=== PATIENT | female | born 1940 | race Caucasian/White ===

== ENCOUNTER 2024-08-19 15:37 | Inpatient (IN) | payer MEDICARE ==
[~2024-08-19] VITALS: Ht 160 cm; Wt 78.5 kg
[2024-08-19 17:31] VITALS: PULSE 64
[2024-08-19] MEDS ORDERED: PROC10TA PO (18:21)
[2024-08-19] MEDS ORDERED: ATOR10TA PO (18:21)
[2024-08-19] MEDS ORDERED: GLUC1VIA21 IM (18:21)
[2024-08-19] MEDS ORDERED: LEVO112T5 PO (18:21)
[2024-08-19] MEDS ORDERED: AMLO-169 PO (18:21)
[2024-08-19] MEDS ORDERED: SERT25TA PO (18:21)
[2024-08-19] MEDS ORDERED: HYDR10TA31 PO (18:21)
[2024-08-19] MEDS ORDERED: INSU100I13 SQ (18:21)
[2024-08-19] MEDS ORDERED: [UNRECOGNIZED DRUG - CODE] PO (18:21)
[2024-08-19] MEDS ORDERED: INSU100C SQ (18:21)
[2024-08-19] MEDS ORDERED: FENT1PAT9 TP (18:21)
[2024-08-19] MEDS ORDERED: ENOX40DI SQ (18:21)
[2024-08-19 18:22] VITALS: BP 191/75; PULSE 64; RESP 16; TEMP 97.1; O2SAT 98
[2024-08-19] MEDS ORDERED: APRESOLINE PO PRN (19:30)
[2024-08-19] MEDS ORDERED: APRESOLINE IV PRN (19:30)
[2024-08-19] MEDS ORDERED: ZOFRAN IV PRN (19:30)
[2024-08-19] MEDS ORDERED: DEXTROSE 50%-WATER SYRINGE IV PRN ×2 (19:30→20:00)
[2024-08-19 19:49] LABS: BASOPHIL # 0.0 10^3/uL (0.0-0.1); BASOPHIL % 0.3 % (0.1-1.2); EOSINOPHIL # 0.1 10^3/uL (0.0-0.2); EOSINOPHIL % 1.4 % (0.0-5.0); HEMATOCRIT(ML) 35.6 % (36.0-46.0); IG % 0.00 % (0.00-0.50); LYMPHOCYTES # 1.05 10^3/uL1 (1.0-4.8); LYMPHOCYTES % 29.2 % (24.0-44.0); MEAN CORP HGB 34.9 pg (26-34); MEAN CORP HGB CONCENTRATION 34.8 g/dL (33-36.5); MEAN CORP VOLUME 100.3 fL (78-100); MONOCYTES # 0.3 10^3/uL (0.3-0.8); MONOCYTES % 7.5 % (5.0-12.0); NEUTROPHIL # 2.2 10^3/uL (1.8-7.7); NEUTROPHILS % 61.6 % (41.0-85.0); RED BLOOD CELL 3.55 10^6/uL (4.00-5.20); RED CELL DISTRIBUTION WIDTH 11.9 % (11.5-14.5); WHITE BLOOD CELL 3.6 10^3/uL (4.5-11.0)
[2024-08-19] MEDS ORDERED: D5W 1000ML 1,000 ML IV PRN (20:00)
[2024-08-19 20:07] LABS: ALANINE AMINOTRANSFERASE(ML) 25.0 U/L (12-78); ALBUMIN(ML) 3.9 g/dL (3.4-5.0); CREATININE SERUM 0.99 mg/dL (0.59-1.40); EST GFR, NON-AA 53.6 (>/=60)
[2024-08-19] MEDS ORDERED: LIPITOR ONE (20:20)
[2024-08-19] MEDS: ZOSYN 3.375 GM 3.375 GM in NS 100ML 100 ML IV SCH (20:24)
[2024-08-19] MEDS: LOVENOX SQ SCH (20:24)
[2024-08-19] MEDS: LIPITOR PO SCH (20:24)
[2024-08-19 20:26] VITALS: BP 162/64; PULSE 60; RESP 16; TEMP 98.4; O2SAT 95
[2024-08-19] MEDS: HUMULIN R SQ SCH (20:26)
[2024-08-19] MEDS ORDERED: COMPAZINE PO PRN (22:30)
[2024-08-19] MEDS ORDERED: TYLENOL PO PRN (23:00)
[2024-08-19] MEDS ORDERED: GLUCAGEN SQ PRN (23:00)
[2024-08-20] MEDS: DURAGESIC TD SCH (01:08)
[2024-08-20] MEDS ORDERED: SYNTHROID ONE (04:48)
[2024-08-20] MEDS: SYNTHROID PO SCH (05:32)
[2024-08-20 05:33] LABS: BASOPHIL # 0.0 10^3/uL (0.0-0.1); BASOPHIL % 0.6 % (0.1-1.2); EOSINOPHIL # 0.1 10^3/uL (0.0-0.2); EOSINOPHIL % 1.6 % (0.0-5.0); HEMATOCRIT(ML) 32.7 % (36.0-46.0); IG % 0.30 % (0.00-0.50); LYMPHOCYTES # 1.07 10^3/uL1 (1.0-4.8); LYMPHOCYTES % 34.6 % (24.0-44.0); MEAN CORP HGB 35.2 pg (26-34); MEAN CORP HGB CONCENTRATION 35.8 g/dL (33-36.5); MEAN CORP VOLUME 98.5 fL (78-100); MONOCYTES # 0.3 10^3/uL (0.3-0.8); MONOCYTES % 8.1 % (5.0-12.0); NEUTROPHIL # 1.7 10^3/uL (1.8-7.7); NEUTROPHILS % 54.8 % (41.0-85.0); RED BLOOD CELL 3.32 10^6/uL (4.00-5.20); RED CELL DISTRIBUTION WIDTH 11.8 % (11.5-14.5); WHITE BLOOD CELL 3.1 10^3/uL (4.5-11.0)
[2024-08-20 05:49] LABS: ALANINE AMINOTRANSFERASE(ML) 20.0 U/L (12-78); ALBUMIN(ML) 3.5 g/dL (3.4-5.0); CREATININE SERUM 0.75 mg/dL (0.59-1.40); EST GFR, NON-AA 73.8 (>/=60)
[2024-08-20 07:09] VITALS: BP 166/74; PULSE 57; RESP 16; TEMP 98.2; O2SAT 97
[2024-08-20] MEDS ORDERED: NS 100ML 100 ML IV ONE ×3 (08:24→20:24)
[2024-08-20] MEDS: NORVASC PO SCH (08:26)
[2024-08-20] MEDS: ZOLOFT PO SCH (08:26)
[2024-08-20] MEDS ORDERED: NS 250ML 250 ML ONE (08:30)
[2024-08-20 10:45] VITALS: BP 140/72
[2024-08-20] MEDS: LANTUS SQ SCH (17:09)
[2024-08-20 19:49] VITALS: BP 144/59; PULSE 60; RESP 17; TEMP 96.4; O2SAT 94
[2024-08-20] MEDS: LIPITOR PO SCH (20:29)
[2024-08-21 07:26] VITALS: BP 131/65; PULSE 58; RESP 16; TEMP 98.1; O2SAT 97
[2024-08-21] MEDS ORDERED: NS 100ML 100 ML IV ONE ×3 (08:21→21:00)
[2024-08-21] MEDS: ULTRAM PO PRN (08:25)
[2024-08-21 19:55] VITALS: BP 163/71; PULSE 60; RESP 18; TEMP 97.1; O2SAT 97
[2024-08-22 07:41] VITALS: BP 154/68; PULSE 61; RESP 16; TEMP 97.2; O2SAT 95
[2024-08-22] MEDS ORDERED: NS 100ML 100 ML IV ONE ×3 (08:23→23:02)
[2024-08-22 19:55] VITALS: BP 120/69; PULSE 60; RESP 16; TEMP 97.6; O2SAT 97
[2024-08-23 08:00] VITALS: BP 166/66; PULSE 61; RESP 17; TEMP 97.9; O2SAT 97
[2024-08-23] MEDS ORDERED: NS 100ML 100 ML IV ONE ×3 (10:23→21:44)
[2024-08-23] MEDS: LANTUS SQ SCH (20:10)
[2024-08-23 20:20] VITALS: BP 151/66; PULSE 67; RESP 16; TEMP 96.9; O2SAT 97
[2024-08-24 05:39] LABS: BASOPHIL # 0.0 10^3/uL (0.0-0.1); BASOPHIL % 0.6 % (0.1-1.2); EOSINOPHIL # 0.1 10^3/uL (0.0-0.2); EOSINOPHIL % 1.8 % (0.0-5.0); HEMATOCRIT(ML) 33.7 % (36.0-46.0); IG % 0.20 % (0.00-0.50); LYMPHOCYTES # 1.12 10^3/uL1 (1.0-4.8); LYMPHOCYTES % 22.0 % (24.0-44.0); MEAN CORP HGB 35.1 pg (26-34); MEAN CORP HGB CONCENTRATION 35.0 g/dL (33-36.5); MEAN CORP VOLUME 100.3 fL (78-100); MONOCYTES # 0.3 10^3/uL (0.3-0.8); MONOCYTES % 6.1 % (5.0-12.0); NEUTROPHIL # 3.5 10^3/uL (1.8-7.7); NEUTROPHILS % 69.3 % (41.0-85.0); RED BLOOD CELL 3.36 10^6/uL (4.00-5.20); RED CELL DISTRIBUTION WIDTH 11.9 % (11.5-14.5); WHITE BLOOD CELL 5.1 10^3/uL (4.5-11.0)
[2024-08-24 06:01] LABS: ALANINE AMINOTRANSFERASE(ML) 34.0 U/L (12-78); ALBUMIN(ML) 3.5 g/dL (3.4-5.0); CREATININE SERUM 0.91 mg/dL (0.59-1.40); EST GFR, NON-AA 59.0 (>/=60)
[2024-08-24 07:14] VITALS: BP 168/70; PULSE 58; RESP 17; TEMP 97.5; O2SAT 99
[2024-08-24] MEDS ORDERED: NS 100ML 100 ML IV ONE ×3 (08:13→21:01)
[2024-08-24] MEDS ORDERED: NS 250ML 250 ML ONE (08:14)
[2024-08-24 20:42] VITALS: BP_SYST 142; BP_SYST 155; BP_DIAS 64; BP_DIAS 86; PULSE 60; PULSE 79; RESP 17; RESP 18; TEMP 96.7; TEMP 98; O2SAT 92; O2SAT 94
[2024-08-24] MEDS: LOVENOX SQ SCH (21:07)
[2024-08-25 07:11] VITALS: BP 136/63; PULSE 55; RESP 16; TEMP 97.7; O2SAT 95
[2024-08-25 14:19] VITALS: BP 136/63; PULSE 55; RESP 16; TEMP 97.7; O2SAT 95
== END 2024-08-25 14:02 | disposition home or self-care (01) | DRG 690 ==
LOC: SBU 15:37
PROVIDERS: ADMIT Hospitalist; ATTEND Student in an Organized Health Care Education/Training Program
DX: N39.0 Urinary tract infection, site not specified (principal); Z16.12 Extended spectrum beta lactamase (ESBL) resistance; F41.1 Generalized anxiety disorder; E11.9 Type 2 diabetes mellitus without complications; B96.20 Unspecified Escherichia coli [E. coli] as the cause of diseases classified elsewhere; E03.9 Hypothyroidism, unspecified; E78.5 Hyperlipidemia, unspecified; G89.4 Chronic pain syndrome; Z79.4 Long term (current) use of insulin; Z79.899 Other long term (current) drug therapy
CPT/HCPCS: 36415; 80053; 82948; 85025; J1650; J1815; J2543; J7050; J8499